=== PATIENT | female | born 1945 | race Caucasian/White ===

== ENCOUNTER → 2016-08-07 | Outpatient (CLI) | payer MEDICARE, OTHER ==
--- NOTE | 2016-08-07 15:20 | Diagnostic Imaging Report ---
Digital mammogram bilateral screening. INDICATION: Screening. This study was compared to the prior exams of 08/11/2014, 07/31/2013, and 07/21/2012. At this time, there are no current complaints. The current study was also evaluated with a Computer Aided Detection (CAD) system. FINDINGS: The fibroglandular tissue in both breasts is heterogeneously dense. This does limit the sensitivity of this exam. On the MLO view of the right breast in the superior aspect of the breast just anterior to the pectoralis muscle and roughly 13 cm from the nipple, there is a small group of faint microcalcifications. These calcific densities were not clearly evident on the prior exam, nor can they be identified on the craniocaudad view of this study. I suspect that these calcifications may be in the far lateral aspect of the right breast. I would recommend that a compression/magnification view of this area be obtained in the MLO projection for further study. An XCC view should also be performed, and if the calcifications in question can be identified in that projection, they should be compressed and magnified as well. The overall appearance of the breasts has not changed significantly otherwise. There is no primary or secondary sign of malignancy noted. IMPRESSION: Additional mammographic views of the right breast would be recommended for further study. ACR BI-RADS Category 0: Incomplete. (Needs additional imaging evaluation). Result letter will be mailed to the patient. Note: At least 10% of breast cancer is not imaged by mammography. Dictated by: Dictated on workstation # [id number]
== END ==
LOC: RAD 08:51
PROVIDERS: ATTEND Family Medicine
DX: Z12.31 Encounter for screening mammogram for malignant neoplasm of breast (principal)

== ENCOUNTER → 2016-08-22 | Outpatient (CLI) | payer MEDICARE, OTHER ==
--- NOTE | 2016-08-22 19:59 | Diagnostic Imaging Report ---
EXAMINATION: Right breast digital diagnostic mammogram with CAD. The current study was also evaluated with a Computer Aided Detection (CAD) system. INDICATION: Asymmetry along the upper aspect of the right MLO view. FINDINGS: The asymmetry marked on the previous screening study on further evaluation appears to correlate with a mole and a mole marker was placed on the focal compression view that matches the area of asymmetry and calcifications compatible with a skin lesion with no true breast abnormality in the parenchyma. IMPRESSION: Asymmetry with calcifications in the upper aspect of the right MLO view, which corresponds to a mole on the skin. No breast parenchymal lesion is identified. Annual screening mammogram is recommended. ACR BI-RADS Category 2: Benign findings. Result letter will be mailed to the patient. Note: At least 10% of breast cancer is not imaged by mammography. Dictated by: Dictated on workstation # [id number]
== END ==
LOC: RAD 08:24
PROVIDERS: ATTEND Nurse Practitioner Family
DX: R92.8 Other abnormal and inconclusive findings on diagnostic imaging of breast (principal)

== ENCOUNTER → 2018-09-02 | Outpatient (CLI) | payer MEDICARE, OTHER | LOC: CARD 12:56 | PROVIDERS: ATTEND Internal Medicine Cardiovascular Disease | DX: R07.89 Other chest pain (principal); E78.5 Hyperlipidemia, unspecified; Z82.49 Family history of ischemic heart disease and other diseases of the circulatory system | CPT/HCPCS: 93306 ==

== ENCOUNTER → 2018-09-09 | Outpatient (CLI) | payer MEDICARE, OTHER ==
[~2018-09-09] MED LIST: CATHETER FLUSH 10 ML SYR IV PRN; REGADENOSON 0.4 MG/5 ML SYR (LEXISCAN) IV ONE
[2018-09-09 09:17] VITALS: BP 141/80
[2018-09-09 09:19] VITALS: BP 151/88
--- NOTE | 2018-09-09 15:05 | STRESS TEST ---
DATE OF SERVICE: 09/09/2018 RESTING AND POST REGADENOSON TECHNETIUM-99M TETROFOSMIN SPECT CT IMAGING ORDERING PHYSICIAN: Leeanna Sandoval APRN. PRIMARY PHYSICIAN: Dr. Lopez. CLINICAL DIAGNOSIS: Chest discomfort. Baseline images were carried out after injection of 10.87 mCi of technetium-99m Tetrofosmin. This was followed by 0.4 mg of Regadenoson and 30.7 mCi of technetium-99m Tetrofosmin for stress imaging. The electrocardiogram showed sinus rhythm at baseline. It did not change significantly with the Regadenoson infusion. The patient noted some lightheadedness following Regadenoson infusion, which resolved in a few minutes. Overall, she tolerated the procedure well. Review of images at rest and following stress does not indicate any distinct perfusion defect consistent with significant myocardial ischemia or infarction. Gated images show normal global left ventricular systolic function with normal regional wall motion. Left ventricular ejection fraction is calculated to be 59%. Left ventricular end diastolic volume is 44 mL. TID is absent (1.16). CONCLUSIONS: 1. No evidence of any significant myocardial ischemia or infarction on this study. 2. Normal regional wall motion. 3. Normal global left ventricular systolic function with a calculated ejection fraction of 59%. Job ID: [id number] DocumentID: [id number] Dictated Date: 09/09/2018 12:55:02 Senior Design Engineer Date: 09/09/2018 15:04:25 Dictated By: BRET TEMPLE MD, MA, FACP, FACC,
== END ==
LOC: CARD 07:34
PROVIDERS: ATTEND Nurse Practitioner Family
DX: R07.9 Chest pain, unspecified (principal); E78.5 Hyperlipidemia, unspecified; I10 Essential (primary) hypertension; Z82.49 Family history of ischemic heart disease and other diseases of the circulatory system
CPT/HCPCS: 78452; 93017

== ENCOUNTER → 2022-12-14 | Outpatient (CLI) | payer MEDICARE, OTHER | LOC: CARD 10:30 | PROVIDERS: ATTEND Internal Medicine Cardiovascular Disease | DX: I08.1 Rheumatic disorders of both mitral and tricuspid valves (principal); I25.10 Atherosclerotic heart disease of native coronary artery without angina pectoris | CPT/HCPCS: 93306 ==

== ENCOUNTER → 2023-02-12 | Outpatient (CLI) | payer MEDICARE, OTHER ==
[~2023-02-12] MED LIST changes: -CATHETER FLUSH 10 ML SYR IV PRN; +CATHETER FLUSH 10 ML SYR IVP PRN
[2023-02-12 09:11] VITALS: BP 204/90
--- NOTE | 2023-02-13 14:32 | STRESS TEST ---
DATE OF SERVICE: 02/12/2023 RESTING AND POST REGADENOSON TECHNETIUM-99M TETROFOSMIN SPECT CT IMAGING ORDERING PHYSICIAN: Dr. Celaya. PRIMARY PHYSICIAN: Dr. Lopez. CLINICAL DIAGNOSIS: Coronary artery disease. Baseline images were carried out after injection of 10.93 mCi of technetium-99m tetrofosmin. This was followed by 0.4 mg regadenoson and 31.8 mCi of technetium-99m tetrofosmin for stress imaging. The electrocardiogram did not change significantly with regadenoson infusion. The patient noted some lightheadedness after regadenoson infusion, which resolved in a few minutes. Review of images at rest and following stress does not indicate any perfusion defects consistent with significant myocardial ischemia or infarction. Gated images show normal global left ventricular systolic function with normal regional wall motion. Left ventricular ejection fraction is calculated to be 61%. CONCLUSIONS: 1. No evidence of any significant myocardial ischemia or infarction on the study. 2. Normal regional wall motion. 3. Normal global left ventricular systolic function with a calculated ejection fraction of 61%. Job ID: [id number] DocumentID: [id number] Dictated Date: 02/13/2023 13:05:04 Film Painter Date: 02/13/2023 14:31:00 Dictated By: BRET CELAYA MD; HERLINDA; FACP; FACC;
== END ==
LOC: CARD 07:32
PROVIDERS: ATTEND Internal Medicine Cardiovascular Disease
DX: I25.10 Atherosclerotic heart disease of native coronary artery without angina pectoris (principal)
CPT/HCPCS: 78452; 93017; A9502